=== PATIENT | female | born 2000 | race Caucasian/White ===

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

== ENCOUNTER 2018-01-13 19:57 | Observation (INO) | payer BC ==
[2018-01-13] MEDS ORDERED: Sodium Chloride 0.9% 1,000 ML IV ONE (20:15)
[2018-01-13] MEDS ORDERED: Sodium Chloride 0.9% 10 ML Syringe FLUSH PRN (20:20)
[2018-01-13] MEDS ORDERED: LORazepam 2 MG/ML MDV IVPUSH ONE (20:25)
--- NOTE | 2018-01-13 21:01 | EDM.PDOCBH ---
ED HPI GENERAL MEDICAL PROBLEM - General Chief Complaint: Headache Stated Complaint: suicide attempt, overdose benadryl Time Seen by Provider: 01/13/18 20:04 Source of Information: Reports: Patient, EMS, EMS Notes Reviewed, RN, RN Notes Reviewed History Limitations: Reports: No Limitations - History of Present Illness INITIAL COMMENTS - FREE TEXT/NARRATIVE: Please use ER note for admission H and P. Ailin Barrientos is a 17 year old female who arrives via EMS with complaints of purposeful overdose of diphehydramine. She states she took about 20 tablets of diphehydramine 25mg at about 7:30 pm this evening. She states she took this to kill herself as her and her fiance broke up. She denies past suicide attempts. She complains of blurred vision, tachycardia, dizziness and mild shortness of breath. She denies chest pain. She denies illegal drug use and smoking. She does drink alcohol rarely, last time about one month ago. Denies prior medical history. Does not take daily medications. Onset: Today Onset Date: 01/13/18 Onset Time: 19:30 Associated Symptoms: Reports: No Other Symptoms - Related Data Allergies Allergy/AdvReac Type Severity Reaction Status Date / Time No Known Allergies Allergy Verified 08/31/17 04:05 Home Meds: Home Meds . [No Known Home Meds] 08/31/17 [History] Past Medical History - Past Health History Medical/Surgical History: Denies Medical/Surgical History ED ROS GENERAL - Review of Systems Review Of Systems: See Below Constitutional: Reports: No Symptoms HEENT: Reports: No Symptoms Respiratory: Reports: Shortness of Breath (mildly) Cardiovascular: Reports: Other ("heart pounding") Endocrine: Reports: No Symptoms GI/Abdominal: Reports: No Symptoms : Reports: No Symptoms Musculoskeletal: Reports: No Symptoms Skin: Reports: No Symptoms Neurological: Reports: Dizziness, Tingling (to arms and legs bilaterally) Psychiatric: Reports: Suicidal Ideation Hematologic/Lymphatic: Reports: No Symptoms ED EXAM, BEHAVIORAL HEALTH - Physical Exam Exam: See Below Exam Limited By: No Limitations General Appearance: Alert, WD/WN, No Apparent Distress Eye Exam: Bilateral Eye: EOMI, PERRL Ears: Normal External Exam, Normal Canal, Hearing Grossly Normal, Normal TMs Nose: Normal Inspection, Normal Mucosa, No Blood Throat/Mouth: Normal Inspection, Normal Lips, Normal Teeth, Normal Gums, Normal Oropharynx, Normal Voice, No Airway Compromise Head: Atraumatic, Normocephalic Neck: Normal Inspection, Supple, Non-Tender, Full Range of Motion Respiratory/Chest: No Respiratory Distress, Lungs Clear, Normal Breath Sounds, No Accessory Muscle Use, Chest Non-Tender Cardiovascular: Normal Peripheral Pulses, No Edema, No Gallop, No JVD, No Murmur , No Rub, Tachycardia GI/Abdominal: Normal Bowel Sounds, Soft, Non-Tender, No Distention Neurological: Alert, Normal Mood/Affect, CN II-XII Intact, Normal Cognition, Normal Gait, Normal Reflexes, No Motor/Sensory Deficits, Oriented x 3, Inattentive Psychiatric: Flat Affect, Tearful, Suicidal Plan, Suicidal Thoughts Skin Exam: Warm, Dry, Intact, Normal color, No rash EKG INTERPRETATION EKG Date: 01/13/18 Time: 20:04 Rhythm: Other (Sinus tachycardia) Rate (Beats/Min): 141 [place]: Normal P-Wave: Present QRS: Normal ST-T: Normal QT: Normal Comparison: NA - No Prior EKG EKG Interpretation Comments: 1. Sinus tachycardia 2. Nonspecific ST & T wave abnormalities 3. Abnormal EKG COURSE, BEHAVIORAL HEALTH COMP - Course Orders, Labs, Meds: Active Orders 24 hr Category Date Time Status Patient Status [ADT] Routine ADT 01/13/18 20:58 Ordered ACETAMINOPHEN [CHEM] Stat Lab 01/13/18 20:20 Ordered COMPREHENSIVE METABOLIC PN,CMP [CHEM] Stat Lab 01/13/18 20:20 Ordered ETOH [ETHANOL BLOOD MEDICAL] [CHEM] Stat Lab 01/13/18 20:23 Ordered SALICYLATE [REF] Stat Lab 01/13/18 20:20 Ordered URINALYSIS W/MICROSCOPIC [UA W/MICROSCOPIC] [URIN] Stat Lab 01/13/18 20:24 Ordered URINE DRUG SCREEN,POC [POC] Routine Lab 01/13/18 20:23 Ordered Sodium Chloride 0.9% [Normal Saline] 1,000 ml Med 01/13/18 20:15 Active IV ONETIME Sodium Chloride 0.9% [Saline Flush] Med 01/13/18 20:20 Ordered 10 ml FLUSH ASDIRECTED PRN Saline Lock Insert [OM.PC] Routine Oth 01/13/18 20:20 Ordered Medication Orders Sodium Chloride (Normal Saline) 1,000 mls @ 999 mls/hr IV ONETIME ONE Stop: 01/13/18 21:15 Last Admin: 01/13/18 20:15 Dose: 999 mls/hr Sodium Chloride (Saline Flush) 10 ml FLUSH ASDIRECTED PRN PRN Reason: Keep Vein Open Laboratory Tests 01/13/18 Range/Units 20:40 WBC 13.3 H (4.0-10.0) x10^3/uL RBC 4.42 (4.00-5.50) x10^6/uL Hgb 13.3 (12.0-16.0) g/dL Hct 39.8 (33.0-47.0) % MCV 90.0 (78.0-93.0) fL MCH 30.1 (26.0-32.0) pg MCHC 33.4 (32.0-36.0) g/dL RDW Coeff of Tanika 12.9 (10.0-15.0) % Plt Count 315 (130-400) x10^3/uL Neut % (Auto) 74.7 (50.0-80.0) % Lymph % (Auto) 18.6 L (25.0-50.0) % [place] % (Auto) 6.3 (2.0-11.0) % Eos % (Auto) 0.2 (0.0-4.0) % Baso % (Auto) 0.2 (0.2-1.2) % Medications Generic Name Dose Route Start Last Admin Trade Name Freq PRN Reason Stop Dose Admin Sodium Chloride 1,000 mls @ 999 mls/hr 01/13/18 20:15 01/13/18 20:15 Normal Saline IV 01/13/18 21:15 999 mls/hr ONETIME ONE Administration Sodium Chloride 10 ml 01/13/18 20:20 Saline Flush FLUSH ASDIRECTED PRN Keep Vein Open Discontinued Medications Generic Name Dose Route Start Last Admin Trade Name Freq PRN Reason Stop Dose Admin Lorazepam 1 mg 01/13/18 20:25 Ativan IVPUSH 01/13/18 20:26 ONETIME ONE Re-Assessment/Re-Exam: poison control contacted regarding benadryl overdose. Advised to watch for tachycardia, seizures, hallucinations, possible aggression. will admit to upstairs for observation for 24 hours. Peak time for benadryl 4 hours according to PC. SAD assessment performed for a score of 4. Departure - Departure Time of Disposition: 21:40 Disposition: Refer to Observation Condition: Fair Clinical Impression: Suicide attempt by drug ingestion - Discharge Information Forms: ED Department Discharge - My Orders Last 24 Hours: My Active Orders 01/13/18 20:15 Sodium Chloride 0.9% [Normal Saline] 1,000 ml IV ONETIME 01/13/18 20:20 ACETAMINOPHEN [CHEM] Stat COMPREHENSIVE METABOLIC PN,CMP [CHEM] Stat SALICYLATE [REF] Stat Sodium Chloride 0.9% [Saline Flush] 10 ml FLUSH ASDIRECTED PRN Saline Lock Insert [OM.PC] Routine 01/13/18 20:23 ETOH [ETHANOL BLOOD MEDICAL] [CHEM] Stat URINE DRUG SCREEN,POC [POC] Routine 01/13/18 20:24 URINALYSIS W/MICROSCOPIC [UA W/MICROSCOPIC] [URIN] Stat 01/13/18 20:58 Patient Status [ADT] Routine - Assessment/Plan Last 24 Hours: My Active Orders 01/13/18 20:15 Sodium Chloride 0.9% [Normal Saline] 1,000 ml IV ONETIME 01/13/18 20:20 ACETAMINOPHEN [CHEM] Stat COMPREHENSIVE METABOLIC PN,CMP [CHEM] Stat SALICYLATE [REF] Stat Sodium Chloride 0.9% [Saline Flush] 10 ml FLUSH ASDIRECTED PRN Saline Lock Insert [OM.PC] Routine 01/13/18 20:23 ETOH [ETHANOL BLOOD MEDICAL] [CHEM] Stat URINE DRUG SCREEN,POC [POC] Routine 01/13/18 20:24 URINALYSIS W/MICROSCOPIC [UA W/MICROSCOPIC] [URIN] Stat 01/13/18 20:58 Patient Status [ADT] Routine
[2018-01-13 21:12] LABS: CHLORIDE,CL 108 mmol/L (98-107); SODIUM,NA 142 mmol/L (136-145)
[2018-01-13 21:19] LABS: ACETAMINOPHEN 0 ug/ml (10-30)
[2018-01-13] MEDS ORDERED: Ondansetron 4 MG Tab.DIS PO PRN (21:42)
[2018-01-13] MEDS: Sodium Chloride 0.9% 1,000 ML IV SCH (22:33)
[2018-01-14] MEDS: Sodium Chloride 0.9% 1,000 ML IV SCH (05:59)
[2018-01-14 09:43] LABS: CHLORIDE,CL 111 mmol/L (98-107); SODIUM,NA 142 mmol/L (136-145)
--- NOTE | 2018-01-14 19:36 | PCM.PN ---
- General Info Date of Service: 01/14/18 Admission Dx/Problem (Free Text): Intentional Benadryl Overdose Anxiety and Depression Subjective Update: Patient offers no specific complaints. She states she feels very depressed and feel anxious due to recent break up from her fiance yesterday. Otherwise, no other specific concerns. Functional Status: Reports: Pain Controlled, Tolerating Diet, Ambulating, Urinating Pain Score: 0 - Review of Systems General: Denies: Fever, Chills Pulmonary: Denies: Shortness of Breath, Cough Cardiovascular: Denies: Chest Pain, Palpitations Gastrointestinal: Reports: Nausea (from anxiety). Denies: Abdominal Pain, Vomiting Skin: Reports: No Symptoms Neurological: Reports: No Symptoms Psychiatric: Reports: Depression, Mood Lability, Anxiety, Suicidal Ideation - Patient Data Vitals - Most Recent: Last Vital Signs Temp 37.1 C 01/14/18 17:24 Pulse 101 H 01/14/18 17:24 Resp 16 01/14/18 17:24 BP 124/74 01/14/18 17:24 Pulse Ox 99 01/14/18 17:24 Weight - Most Recent: 83.461 kg I&O - Last 24 Hours: Intake & Output 01/14/18 01/14/18 01/14/18 06:59 14:59 22:59 Intake Total 1167 240 Output Total 950 Balance 217 240 Lab Results Last 24 Hours: Laboratory Results - last 24 hr 01/13/18 01/14/18 01/14/18 Range/Units 21:03 09:21 09:21 WBC 12.6 H (4.0-10.0) x10^3/uL RBC 4.03 (4.00-5.50) x10^6/uL Hgb 12.3 (12.0-16.0) g/dL Hct 37.2 (33.0-47.0) % MCV 92.3 (78.0-93.0) fL MCH 30.5 (26.0-32.0) pg MCHC 33.1 (32.0-36.0) g/dL RDW Coeff of Tanika 13.1 (10.0-15.0) % Plt Count 277 (130-400) x10^3/uL Neut % (Auto) 53.2 (50.0-80.0) % Lymph % (Auto) 36.1 (25.0-50.0) % [place] % (Auto) 10.0 (2.0-11.0) % Eos % (Auto) 0.5 (0.0-4.0) % Baso % (Auto) 0.2 (0.2-1.2) % Sodium 142 (136-145) mmol/L Potassium 3.8 (3.5-5.1) mmol/L Chloride 111 H (98-107) mmol/L Carbon Dioxide 23 (21-32) mmol/L BUN 10 (7-18) mg/dL Creatinine 0.8 (0.55-1.02) mg/dL Est Cr Clr Drug Dosing 101.78 mL/min Estimated GFR (MDRD) > 60 Glucose 79 (74-106) mg/dL Calcium 8.1 L (8.5-10.1) mg/dL Magnesium 1.9 (1.8-2.4) mg/dL Urine Color Yellow (YELLOW) Urine Appearance Clear (CLEAR) Urine pH 7.0 (5.0-8.0) Ur Specific [place] 1.010 Urine Protein Negative (NEGATIVE) mg/dL Urine Glucose (UA) Negative (NEGATIVE) mg/dL Urine Ketones Negative (NEGATIVE) mg/dL Urine Occult Blood Negative (NEGATIVE) Urine Nitrite Negative (NEGATIVE) Urine Bilirubin Negative (NEGATIVE) Urine Urobilinogen 0.2 (0.2) EU/dL Ur Leukocyte Esterase Negative (NEGATIVE) Urine RBC 0-5 (NOT SEEN) /HPF Urine WBC 0-5 (NOT SEEN) /HPF Ur Squamous Epith Cells Rare (NEGATIVE) /HPF Urine Bacteria Not seen (NEGATIVE) /HPF Urine Mucus Not seen (NEGATIVE) /LPF Med Orders - Current: Current Medications Ondansetron HCl (Zofran Odt) 4 mg PO Q4H PRN PRN Reason: nausea, able to take PO Sodium Chloride (Saline Flush) 10 ml FLUSH ASDIRECTED PRN PRN Reason: Keep Vein Open Discontinued Medications Sodium Chloride (Normal Saline) 1,000 mls @ 999 mls/hr IV ONETIME ONE Stop: 01/13/18 21:15 Last Admin: 01/13/18 20:15 Dose: 999 mls/hr Sodium Chloride (Normal Saline) 1,000 mls @ 125 mls/hr IV ASDIRECTED [facility] Last Admin: 01/14/18 05:59 Dose: 125 mls/hr Lorazepam (Ativan) 1 mg IVPUSH ONETIME ONE Stop: 01/13/18 20:26 Last Admin: 01/13/18 21:18 Dose: 1 mg - Exam General: Alert, Oriented, Cooperative, No Acute Distress Lungs: Clear to Auscultation, Normal Respiratory Effort Cardiovascular: Regular Rate, Regular Rhythm GI/Abdominal Exam: Normal Bowel Sounds, Soft, Non-Tender Peripheral Pulses: 2+: Radial (L), Radial (R) Skin: Warm, Dry, Intact Neurological: No New Focal Deficit Psy/Mental Status: Labile Mood, Anxious, Depressed, Suicidal Ideation - Problem List & Annotations (1) Suicide attempt by drug ingestion SNOMED Code(s): 43266998 Code(s): T50.902A - POISONING BY UNSP DRUG/MEDS/BIOL SUBST, SELF-HARM, INIT Status: Acute Priority: High Current Visit: Yes Onset Date: ~01/13/18 Qualifiers: Encounter type: initial encounter Qualified Code(s): T50.902A - Poisoning by unspecified drugs, medicaments and biological substances, intentional self- harm, initial encounter (2) Depression SNOMED Code(s): 06783596 Code(s): F32.9 - MAJOR DEPRESSIVE DISORDER, SINGLE EPISODE, UNSPECIFIED Status: Acute Priority: Medium Current Visit: Yes Onset Date: ~01/13/18 Qualifiers: Depression Type: major depressive disorder Major depression recurrence: single episode Active/Remission status: currently active Major depression episode severity: severe Psychotic features: with psychotic features Qualified Code(s): F32.3 - Major depressive disorder, single episode, severe with psychotic features (3) Anxiety SNOMED Code(s): 44233712 Code(s): F41.9 - ANXIETY DISORDER, UNSPECIFIED Status: Acute Priority: Medium Current Visit: Yes Onset Date: ~01/13/18 - Problem List Review Problem List Initiated/Reviewed/Updated: Yes - My Orders Last 24 Hours: My Active Orders 01/14/18 10:58 Consult to Account Assistant [CONS] Routine 01/15/18 05:11 BASIC METABOLIC PANEL,BMP [CHEM] Routine CBC WITH AUTO DIFF [HEME] Routine - Assessment Assessment:: Suicide Attempt by drug ingestion Depression Anxiety - Plan Plan:: 17-year-old female patient with no past medical history was admitted to the observation unit [facility] last evening for a suicide attempt by drug ingestion. The patient apparently took 20 tablets of diphenhydramine 25 mg in an attempt to end her life. Apparently the patient broke up with her fianc last evening which caused the suicide attempt. The patient does not have any previous psychiatric history. During the interview with the patient today, she was unable to contract for any safety. The patient states that she does not feel safe being alone as she is not sure if she will try another suicide attempt. Therefore the patient will remain in observation through today. I will have the counter caser work on inpatient placement for tomorrow. This was discussed with the patient if she is unable to contract for safety she will need inpatient treatment at another facility. The patient verbalizes understanding. We will discontinue the patient's IV fluids that she is taking by mouth fluids well. The patient is tolerating her diet and she is ambulating independently in the room. I will recheck blood work in the morning. If everything continues to go well, the patient will be discharged to an inpatient treatment facility tomorrow.
[2018-01-15 07:20] LABS: CHLORIDE,CL 108 mmol/L (98-107); SODIUM,NA 142 mmol/L (136-145)
--- NOTE | 2018-01-15 15:37 | PCM.DCSUM1 ---
Discharge Summary - Hospital Course HPI Initial Comments: Patient was brought to the emergency room at [facility] 2 days ago for an intentional drug overdose. The patient admitted to taking 20 tablets of 25 mg diphenhydramine. The patient states that she attempted the suicide due to a recent breakup with her fianc. The patient states she's never been hospitalized for any psychiatric issues in the past. The patient states that she has thought of suicide but no formal plan or an attempt in the past. The patient has never been formally diagnosed with any psychiatric issues in the past. The patient currently does not take any prescription medications. The patient denies any other past medical history. The patient denies any illegal drug use. The patient denies rare alcohol use, if any. The patient will be admitted to the observation unit at [facility]. The Po[facility] Control [facility] was contacted and have been consulting on this patient. - Discharge Data Discharge Date: 01/15/18 Discharge Disposition: DC/Tfer to Psych Hosp/Unit 65 Condition: Stable - Discharge Diagnosis/Problem(s) (1) Suicide attempt by drug ingestion SNOMED Code(s): 56027303 ICD Code: T50.902A - POISONING BY UNSP DRUG/MEDS/BIOL SUBST, SELF-HARM, INIT Status: Acute Priority: High Current Visit: Yes Onset Date: ~01/13/18 Qualifiers: Encounter type: initial encounter Qualified Code(s): T50.902A - Poisoning by unspecified drugs, medicaments and biological substances, intentional self- harm, initial encounter (2) Depression SNOMED Code(s): 69460573 ICD Code: F32.9 - MAJOR DEPRESSIVE DISORDER, SINGLE EPISODE, UNSPECIFIED Status: Acute Priority: Medium Current Visit: Yes Onset Date: ~01/13/18 Qualifiers: Depression Type: major depressive disorder Major depression recurrence: single episode Active/Remission status: currently active Major depression episode severity: severe Psychotic features: with psychotic features Qualified Code(s): F32.3 - Major depressive disorder, single episode, severe with psychotic features (3) Anxiety SNOMED Code(s): 02774866 ICD Code: F41.9 - ANXIETY DISORDER, UNSPECIFIED Status: Acute Priority: Medium Current Visit: Yes Onset Date: ~01/13/18 - Patient Summary/Data Operative Procedure(s) Performed: None Consults: Consultations 01/14/18 10:58 Consult to Improvement Intern [CONS] Routine Labs Pending at D/C: None Hospital Course: Overall, the patient remained stable during her observation stay. No issues with urination or BM's. Patient remained pain free. Initially she did have issues with hallucinations, but she has cleared this. Labs remained stable. No focal neurological concerns. Telemetry normal. VSS. Afebrile. - Patient Instructions Diet: Regular Diet as Tolerated Activity: As Tolerated Driving: Do Not Drive Showering/Bathing: May Shower Notify Provider of: Fever, Increased Pain, Nausea and/or Vomiting - Discharge Plan Home Medications: Home Meds . [No Known Home Meds] 08/31/17 [History] Forms: Interfacility Transfer EMTALA Referrals: PCP,None [Primary Care Provider] - - Discharge Summary/Plan Comment DC Time >30 min.: No Discharge Summary/Plan Comment: 17-year-old female patient was admitted to the observation unit 2 days ago for an intentional drug overdose. The patient does not have a past medical history of psychiatric disorders. In interviewing the patient, she states that she recently had a breakup with her fianc which caused her intentional overdose. The patient had stated in the past she has thought of suicide but never has had a plan or an attempt. The patient remained hemodynamically stable while in the hospital. Blood work was essentially normal. His drug screen negative. Salicylate level normal. Acetaminophen level normal. The patient was unable to contract for safety with me yesterday therefore the patient will require inpatient treatment. The patient will be transferred to [facility] for inpatient treatment of her recent suicide attempt, depression, and anxiety. The patient will be sent via private vehicle as the patient is willing to go voluntarily. Long discussion was held with the patient and her mother that they need to arrived by a certain time, if they do not local law enforcement will be contacted to find them. Mother patient verbalizes understanding. The patient was discharged from the observation unit in hemodynamically stable condition. - General Info Date of Service: 01/15/18 Admission Dx/Problem (Free Text: Intentional Benadryl Overdose Anxiety and Depression Functional Status: Reports: Pain Controlled, Tolerating Diet, Ambulating, Urinating Numeric/FACES Score: 0 - Review of Systems General: Denies: Fever, Weakness, Chills Pulmonary: Denies: Shortness of Breath, Cough Cardiovascular: Denies: Chest Pain, Palpitations Gastrointestinal: Denies: Abdominal Pain, Nausea, Vomiting Skin: Reports: No Symptoms Neurological: Reports: No Symptoms Psychiatric: Reports: Depression, Mood Lability, Suicidal Ideation - Patient Data Vitals - Most Recent: Last Vital Signs Temp 36.8 C 01/15/18 13:53 Pulse 105 H 01/15/18 13:53 Resp 16 01/15/18 13:53 BP 117/61 01/15/18 13:53 Pulse Ox 96 01/15/18 13:53 Weight - Most Recent: 83.461 kg I&O - Last 24 hours: Intake & Output 01/15/18 01/15/18 01/15/18 06:59 14:59 22:59 Intake Total 200 120 Balance 200 120 Lab Results - Last 24 hrs: Laboratory Results - last 24 hr 01/15/18 01/15/18 Range/Units 06:37 06:37 WBC 9.5 (4.0-10.0) x10^3/uL RBC 4.40 (4.00-5.50) x10^6/uL Hgb 13.3 (12.0-16.0) g/dL Hct 40.2 (33.0-47.0) % MCV 91.4 (78.0-93.0) fL MCH 30.2 (26.0-32.0) pg MCHC 33.1 (32.0-36.0) g/dL RDW Coeff of Tanika 13.0 (10.0-15.0) % Plt Count 299 (130-400) x10^3/uL Neut % (Auto) 43.6 L (50.0-80.0) % Lymph % (Auto) 45.6 (25.0-50.0) % Bennett % (Auto) 8.9 (2.0-11.0) % Eos % (Auto) 1.7 (0.0-4.0) % Baso % (Auto) 0.2 (0.2-1.2) % Sodium 142 (136-145) mmol/L Potassium 3.7 (3.5-5.1) mmol/L Chloride 108 H (98-107) mmol/L Carbon Dioxide 23 (21-32) mmol/L BUN 10 (7-18) mg/dL Creatinine 0.8 (0.55-1.02) mg/dL Est Cr Clr Drug Dosing 101.78 mL/min Estimated GFR (MDRD) > 60 Glucose 81 (74-106) mg/dL Calcium 8.8 (8.5-10.1) mg/dL Med Orders - Current: Current Medications Ondansetron HCl (Zofran Odt) 4 mg PO Q4H PRN PRN Reason: nausea, able to take PO Sodium Chloride (Saline Flush) 10 ml FLUSH ASDIRECTED PRN PRN Reason: Keep Vein Open Discontinued Medications Sodium Chloride (Normal Saline) 1,000 mls @ 999 mls/hr IV ONETIME ONE Stop: 01/13/18 21:15 Last Admin: 01/13/18 20:15 Dose: 999 mls/hr Sodium Chloride (Normal Saline) 1,000 mls @ 125 mls/hr IV ASDIRECTED MARTI Last Admin: 01/14/18 05:59 Dose: 125 mls/hr Lorazepam (Ativan) 1 mg IVPUSH ONETIME ONE Stop: 01/13/18 20:26 Last Admin: 01/13/18 21:18 Dose: 1 mg - Exam General: Reports: Alert, Oriented, Cooperative, No Acute Distress Lungs: Reports: Clear to Auscultation, Normal Respiratory Effort Cardiovascular: Reports: Regular Rate, Regular Rhythm, No Murmurs GI/Abdominal Exam: Normal Bowel Sounds, Soft, Non-Tender Extremities: Normal Inspection Skin: Reports: Warm, Dry, Intact Neurological: Reports: No New Focal Deficit Psy/Mental Status: Reports: Labile Mood, Depressed, Suicidal Ideation *Q Meaningful Use (DIS) - VTE *Q VTE Criteria *Q: No risk for falls at time of discharge - Stroke *Q Stroke Criteria *Q: - AMI *Q AMI Criteria *Q:
== END 2018-01-15 15:35 ==
LOC: VM.ED 19:57 → VM.MS 20:58
PROVIDERS: ADMIT Nurse Practitioner Family; ATTEND Nurse Practitioner Family
DX: T45.0X2A Poisoning by antiallergic and antiemetic drugs, intentional self-harm, initial encounter (principal); F32.3 Major depressive disorder, single episode, severe with psychotic features; F41.9 Anxiety disorder, unspecified; Z88.0 Allergy status to penicillin
CPT/HCPCS: 36415; 80048; 80053; 80305; 81001; 83735; 85025; 93005; 96361; 96374; 99285; G0378; G0480; J2060; J7030